=== PATIENT | female | born 1950 | race Caucasian/White ===

== ENCOUNTER 2019-12-16 13:01 | Emergency (ER) | payer MEDICAID ==
[~2019-12-16] VITALS: Ht 154.9 cm; Wt 69.4 kg
[2019-12-16 13:23] VITALS: BP 144/76
--- NOTE | 2019-12-16 13:30 | NUR ---
Vital Signs Stable. Pt sent back to [facility]. Awaiting for bed availabilty.
--- NOTE | 2019-12-16 14:21 | NUR ---
69 Y/O FEMALE C/O NAUSEA, VOMITING, CHILLS, COUGH, CONGESTION SINCE 0900 TODAY. PT STATES 4 EPISODES OF VOMITING SINCE THIS MORNING. DENIES CHEST PAIN/SOB. ABD SOFT, ROUND, AND NONTENDER TO PALP. NO PAIN NOTED PER PT. RR EVEN AND UNLABORED, HOB RAISED. X 1 SIDERAIL RAISED. VSS. FAMILY AT BEDSIDE. MEDHX: DENIES ALLERGIES: NKA
--- NOTE | 2019-12-16 14:45 | NUR ---
NI ANNE AT BEDSIDE EXAMINING PT
[2019-12-16] MEDS ORDERED: MECLIZINE 25 MG TAB PO ONE (14:55)
--- NOTE | 2019-12-16 15:11 | NUR ---
PT TO CT VIA KATIA
--- NOTE | 2019-12-16 15:31 | NUR ---
SITTING UPRIGHT AWAKE AND ALERT. PLACED ON MONITOR. STATES SHE CANNOT GIVE URINE AT THIS TIME. WILL CONTINUE TO MONITOR
[2019-12-16 15:35] LABS: BASOPHILS % (AUTO) 0.5 % (0.0-2.0); EOSINOPHILS % (AUTO) 0.3 % (0.0-4.0); HEMATOCRIT 43.7 % (36-48); HEMOGLOBIN 14.9 g/dL (12.0-16.0); LYMPHOCYTES # (AUTO) 1.6 K/uL (2.5-16.5); LYMPHOCYTES % (AUTO) 15.9 % (20.5-51.1); MEAN CORPUSCULAR HEMOGLOBIN 32 pg (27-31); MEAN CORPUSCULAR HGB CONC 34 g/dL (33-37); MEAN CORPUSCULAR VOLUME 94.4 fL (80-94); MONOCYTES # (AUTO) 0.4 K/uL (0.8-1.0); MONOCYTES % (AUTO) 4.3 % (1.7-9.3); NEUTROPHILS # (AUTO) 8.1 K/uL (1.8-7.7); PLATELET COUNT (AUTO) 282 K/uL (140-450); RED BLOOD CELL COUNT(AUTO) 4.63 MIL/uL (4.20-5.40); RED CELL DISTRIBUTION WIDTH 13.7 % (11.6-13.7); WHITE BLOOD COUNT (AUTO) 10.2 K/uL (4.8-10.8)
[2019-12-16 15:54] LABS: ALBUMIN 4.1 g/dL (3.4-5.0); ANION GAP 13.7 (8-16); ASPARTATE AMINOTRANSFERASE 13 U/L (15-37); CARBON DIOXIDE 28.3 mmol/L (21-32); CHLORIDE 102 mmol/L (98-107); CREATININE 0.6 mg/dL (0.6-1.3); GLUCOSE 105 mg/dL (74-106); LIPASE 171 U/L (73-393); SODIUM SERUM 140 mmol/L (136-145); TOTAL BILIRUBIN 0.8 mg/dL (0.0-1.0); UREA NITROGEN, BLOOD 11 mg/dL (7-18)
--- NOTE | 2019-12-16 16:03 | NUR ---
AMBULATED TO RESTROOM WITH STEADY GAIT
[2019-12-16 16:34] LABS: APPEARANCE,URINE CLOUDY (CLEAR); BILIRUBIN,URINE NEGATIVE (NEGATIVE); BLOOD, URINE TRACE-I (NEGATIVE); COLOR,URINE YELLOW (YELLOW); LEUKOCYTE ESTERASE ,URINE 1+ (NEGATIVE); NITRITE, URINE POSITIVE (NEGATIVE); PH,URINE 7.5 (5.0-9.0); UGLUCOSE NEGATIVE (NEGATIVE)
--- NOTE | 2019-12-16 16:43 | NUR ---
LAYING IN BED CALM AND PLEASANT. VSS. FAMILY AT BEDSIDE. WILL CONTINUE TO MONITOR
[2019-12-16 16:52] LABS: RBC,URINE 0-5 /HPF (0-5)
[2019-12-16 17:13] VITALS: BP 131/81
--- NOTE | 2019-12-16 17:14 | NUR ---
Patient discharged with v/s stable. Written and verbal after care instructions given and explained. Patient alert, oriented and verbalized understanding of instructions. Ambulatory with steady gait. All questions addressed prior to discharge. ID band removed. Patient advised to follow up with PMD. Rx of ZOFRAN AND NITROFURANTOIN given. Patient educated on indication of medication including possible reaction and side effects. Opportunity to ask questions provided and answered.
== END 2019-12-16 17:14 | disposition home or self-care (01) ==
LOC: MED 13:01
DX: N39.0 Urinary tract infection, site not specified (principal); R11.2 Nausea with vomiting, unspecified; E89.0 Postprocedural hypothyroidism
CPT/HCPCS: 36415; 70450; 71045; 80053; 81001; 83690; 84484; 85025; 87086; 87186; 87804; 93005; 99285; J8597; Q0092

== ENCOUNTER 2021-02-18 14:00 | Emergency (ER) | payer MEDICAID ==
[~2021-02-18] VITALS: Ht 149.9 cm; Wt 70.8 kg
[2021-02-18 14:10] VITALS: BP 154/77
--- NOTE | 2021-02-18 14:17 | NUR ---
Patient ambulated to bed 9. RN evaluating the patient at bedside.
--- NOTE | 2021-02-18 14:46 | NUR ---
Dr. Good is evaluating the patient at bedside.
[2021-02-18] MEDS ORDERED: KETOROLAC 60 MG/2 ML VIAL IM ONE (14:50)
[2021-02-18] MEDS ORDERED: CIPR500T4 PO (15:05)
[2021-02-18] MEDS ORDERED: IBUP-2213 PO (15:05)
--- NOTE | 2021-02-18 15:30 | NUR ---
70 Y/O F BIB SON FROM HOME, C/O ITCHY PERINEAL AREA AND L FLANK PAIN FOR 5-6 MONTHS. PT DOES NOT HAVE PRIMARY CARE DRJani HAS NOT TAKEN ANY MEDICATIONS FOR PAIN. 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 PMH: NONE NKA MED: NONE
[2021-02-18] MEDS ORDERED: HYDROCORTISONE 1% CRM 30 GM TUBE TP STA (15:35)
[2021-02-18 15:50] VITALS: BP 154/77
--- NOTE | 2021-02-18 15:50 | NUR ---
Patient discharged with v/s stable. Written and verbal after care instructions given and explained. Patient alert, oriented and verbalized understanding of instructions. Ambulatory with steady gait. All questions addressed prior to discharge. ID band removed. Patient advised to follow up with PMD. Rx of IBUPROFEN, CIPROFLOXACIN given. Patient educated on indication of medication including possible reaction and side effects. Opportunity to ask questions provided and answered.
[2021-02-18] MEDS ORDERED: HYD1C TP (15:51)
== END 2021-02-18 15:50 | disposition home or self-care (01) ==
LOC: MED 14:00
DX: N39.0 Urinary tract infection, site not specified (principal)
CPT/HCPCS: 81002; 96372; 99283; J1885

== ENCOUNTER 2022-04-28 12:53 | Emergency (ER) | payer MEDICAID ==
[~2022-04-28] VITALS: Ht 152.4 cm; Wt 68.5 kg
[~2022-04-28 12:53] MED LIST: CIPR500T4 PO; HYD1C TP; IBUP-2213 PO
[2022-04-28 12:56] VITALS: BP 136/68
[2022-04-28] MEDS ORDERED: KETOROLAC 30 MG/ML VIAL IM ONE (15:15)
--- NOTE | 2022-04-28 15:19 | NUR ---
PT AMBULATED TO BED 11
--- NOTE | 2022-04-28 15:21 | NUR ---
71/F C/O LEFT LEG AND HIP PAIN X1 MONTH, DENIES INJURY OR TRAUMA, STATES SHE TOOK TYLENOL WITH NO RELIEF. PMH: DENIES NKDA
--- NOTE | 2022-04-28 15:23 | NUR ---
XR AT PT BEDSIDE
[2022-04-28] MEDS ORDERED: ACET-10509 PO (16:36)
[2022-04-28] MEDS ORDERED: CEPH-588 PO (16:36)
[2022-04-28] MEDS ORDERED: LIDO1ADH38 TP (16:36)
[2022-04-28 17:06] VITALS: BP 116/68
--- NOTE | 2022-04-28 17:07 | NUR ---
Patient discharged with v/s stable. Written and verbal after care instructions given and explained. Patient alert, oriented and verbalized understanding of instructions. Ambulatory with steady gait. All questions addressed prior to discharge. ID band removed. Patient advised to follow up with PMD. Rx of TYLENOL,KEFLEX,ZTLIDO given. Patient educated on indication of medication including possible reaction and side effects. Opportunity to ask questions provided and answered.
== END 2022-04-28 17:07 | disposition home or self-care (01) ==
LOC: MED 12:53
DX: M79.605 Pain in left leg (principal); N39.0 Urinary tract infection, site not specified; M25.552 Pain in left hip; Z79.899 Other long term (current) drug therapy; Z79.2 Long term (current) use of antibiotics; Z79.1 Long term (current) use of non-steroidal anti-inflammatories (NSAID)
CPT/HCPCS: 73502; 81002; 96372; 99283; J1885

== ENCOUNTER 2023-03-10 13:18 | Emergency (ER) | payer MEDICAID ==
[~2023-03-10] VITALS: Ht 162.6 cm; Wt 68.9 kg
[~2023-03-10 13:18] MED LIST changes: +ACET-10509 PO; +CEPH-588 PO; +LIDO1ADH38 TP
[2023-03-10 13:52] VITALS: BP 131/77
[2023-03-10] MEDS ORDERED: BENZ200C4 PO (15:18)
--- NOTE | 2023-03-10 16:39 | NUR ---
Patient discharged with v/s stable. Written and verbal after care instructions given and explained. Patient alert, oriented and verbalized understanding of instructions. Ambulatory with steady gait accompanied by family. All questions addressed prior to discharge. ID band removed. Patient advised to follow up with PMD. Rx of benzonatate given. Patient educated on indication of medication including possible reaction and side effects. Opportunity to ask questions provided and answered.
== END 2023-03-10 16:39 | disposition home or self-care (01) ==
LOC: MED 13:18
DX: J20.9 Acute bronchitis, unspecified (principal); Z79.899 Other long term (current) drug therapy
CPT/HCPCS: 71045; 99283

== ENCOUNTER 2024-01-08 09:34 | Emergency (ER) | payer MEDICAID ==
[~2024-01-08] VITALS: Ht 148.6 cm; Wt 70.5 kg
[~2024-01-08 09:34] MED LIST changes: +BENZ200C4 PO
[2024-01-08 09:39] VITALS: BP 161/76; PULSE 75; RESP 16; TEMP 98.9; O2SAT 96
[2024-01-08 10:34] LABS: BASOPHILS % (AUTO) 0.3 % (0.0-2.0); EOSINOPHILS % (AUTO) 0.1 % (0.0-4.0); HEMATOCRIT 41.4 % (36-48); HEMOGLOBIN 14.1 g/dL (12.0-16.0); LYMPHOCYTES # (AUTO) 1.2 K/uL (2.5-16.5); LYMPHOCYTES % (AUTO) 12.4 % (20.5-51.1); MEAN CORPUSCULAR HEMOGLOBIN 33 pg (27-31); MEAN CORPUSCULAR HGB CONC 34 g/dL (33-37); MEAN CORPUSCULAR VOLUME 96.3 fL (80-94); MONOCYTES # (AUTO) 0.5 K/uL (0.8-1.0); MONOCYTES % (AUTO) 4.9 % (1.7-9.3); NEUTROPHILS # (AUTO) 7.8 K/uL (1.8-7.7); NEUTROPHILS % (AUTO) 82.3 % (42.2-75.2); PLATELET COUNT (AUTO) 269 K/uL (140-450); RED CELL DISTRIBUTION WIDTH 13.7 % (11.6-13.7); WHITE BLOOD COUNT (AUTO) 9.5 K/uL (4.8-10.8)
[2024-01-08] MEDS: NACL 0.9% 1,000 ML IV SCH (10:46)
[2024-01-08] MEDS: ONDANSETRON 4 MG/2 ML VIAL IVP ONE (10:47)
[2024-01-08 10:49] LABS: ANION GAP 13.9 (8-16); CALCIUM 8.8 mg/dL (8.5-10.1); CARBON DIOXIDE 28.1 mmol/L (21-32); CHLORIDE 102 mmol/L (98-107); CREATININE 0.7 mg/dL (0.6-1.3); GLUCOSE 140 mg/dL (74-106); SODIUM SERUM 140 mmol/L (136-145); UREA NITROGEN, BLOOD 18 mg/dL (7-18)
[2024-01-08 10:55] LABS: ALBUMIN 3.5 g/dL (3.4-5.0); BILIRUBIN,DIRECT 0.1 mg/dL (0.0-0.3); TOTAL BILIRUBIN 0.6 mg/dL (0.0-1.0); TOTAL PROTEIN, SERUM 8.5 g/dL (6.4-8.2)
[2024-01-08] MEDS ORDERED: ONDA8TAB87 PO (11:11)
[2024-01-08] MEDS ORDERED: MECL-303 PO (11:11)
[2024-01-08 11:22] VITALS: BP 161/76; PULSE 75; RESP 16; TEMP 37.16964; O2SAT 96
== END 2024-01-08 11:22 | disposition home or self-care (01) ==
LOC: MED 09:34
DX: N39.0 Urinary tract infection, site not specified (principal); R42 Dizziness and giddiness; Z79.899 Other long term (current) drug therapy
CPT/HCPCS: 36415; 80048; 80076; 81002; 83690; 85025; 96361; 96374; 99283; J2405; J7030

== ENCOUNTER 2024-03-06 10:50 | Emergency (ER) | payer MEDICAID ==
[~2024-03-06] VITALS: Ht 157.5 cm; Wt 68.0 kg
[~2024-03-06 10:50] MED LIST changes: +MECL-303 PO; +ONDA8TAB87 PO
[2024-03-06 10:53] VITALS: BP 155/68; PULSE 71; RESP 18; TEMP 97.6; O2SAT 97
[2024-03-06] MEDS: METOCLOPRAMIDE 10 MG TAB PO ONE (11:36)
[2024-03-06 11:39] LABS: BASOPHILS % (AUTO) 0.4 % (0.0-2.0); EOSINOPHILS # (AUTO) 0.1 K/uL (0-0.4); EOSINOPHILS % (AUTO) 1.5 % (0.0-4.0); HEMATOCRIT 40.2 % (36-48); HEMOGLOBIN 13.8 g/dL (12.0-16.0); LYMPHOCYTES # (AUTO) 2.8 K/uL (2.5-16.5); LYMPHOCYTES % (AUTO) 32.4 % (20.5-51.1); MEAN CORPUSCULAR HEMOGLOBIN 33 pg (27-31); MEAN CORPUSCULAR HGB CONC 34 g/dL (33-37); MEAN CORPUSCULAR VOLUME 96.8 fL (80-94); MONOCYTES # (AUTO) 0.6 K/uL (0.8-1.0); NEUTROPHILS # (AUTO) 5.2 K/uL (1.8-7.7); NEUTROPHILS % (AUTO) 58.7 % (42.2-75.2); PLATELET COUNT (AUTO) 242 K/uL (140-450); RED BLOOD CELL COUNT(AUTO) 4.16 MIL/uL (4.20-5.40); RED CELL DISTRIBUTION WIDTH 14.1 % (11.6-13.7); WHITE BLOOD COUNT (AUTO) 8.8 K/uL (4.8-10.8)
[2024-03-06 12:09] LABS: ANION GAP 14.2 (8-16); CALCIUM 8.9 mg/dL (8.5-10.1); CARBON DIOXIDE 24.9 mmol/L (21-32); CHLORIDE 103 mmol/L (98-107); CREATININE 0.9 mg/dL (0.6-1.3); GLUCOSE 171 mg/dL (74-106); POTASSIUM 4.1 mmol/L (3.5-5.1); SODIUM SERUM 138 mmol/L (136-145); UREA NITROGEN, BLOOD 15 mg/dL (7-18)
[2024-03-06 12:13] LABS: APPEARANCE,URINE CLEAR (CLEAR); BILIRUBIN,URINE NEGATIVE (NEGATIVE); BLOOD, URINE TRACE-I (NEGATIVE); COLOR,URINE YELLOW (YELLOW); LEUKOCYTE ESTERASE ,URINE NEGATIVE (NEGATIVE); NITRITE, URINE POSITIVE (NEGATIVE); PROTEIN,URINE 1+ (NEGATIVE); UGLUCOSE NEGATIVE (NEGATIVE); UROBILINOGEN,URINE 0.2 EU/dL (0.2 - 1)
[2024-03-06 12:20] LABS: ALANINE AMINOTRANSFERASE 23 U/L (12-78); ALBUMIN 3.7 g/dL (3.4-5.0); ALKALINE PHOSPHATASE 80 U/L (50-136); ASPARTATE AMINOTRANSFERASE 13 U/L (15-37); BILIRUBIN,DIRECT 0.1 mg/dL (0.0-0.3); LIPASE 52 U/L (16-77); TOTAL BILIRUBIN 0.7 mg/dL (0.0-1.0); TOTAL PROTEIN, SERUM 7.4 g/dL (6.4-8.2)
[2024-03-06 12:26] LABS: BACTERIA,URINE FEW /HPF (None Seen); RBC,URINE 0-5 /HPF (0-5); SQUAMOUS EPITHELIAL CELL,UR 4-10 (MOD) /LPF (0-3 (FEW))
[2024-03-06] MEDS ORDERED: CEPH-588 PO (12:55)
[2024-03-06 12:59] VITALS: BP 145/70; PULSE 69; RESP 18; TEMP 98; O2SAT 98
[2024-03-08] MEDS ORDERED: CIPR500T4 PO (15:22)
== END 2024-03-06 12:59 | disposition home or self-care (01) ==
LOC: MED 10:50
DX: N39.0 Urinary tract infection, site not specified (principal); R11.2 Nausea with vomiting, unspecified; R42 Dizziness and giddiness; Z79.899 Other long term (current) drug therapy
CPT/HCPCS: 36415; 71045; 80048; 80076; 81001; 82948; 83690; 84484; 85025; 87086; 87186; 93005; 99285; J8597